=== PATIENT | female | born 1980 | race Caucasian/White ===

== ENCOUNTER 2022-05-25 08:40 | Outpatient (CLI) | payer OTHER, SELFPAY ==
--- NOTE | 2022-05-25 08:45 | CRLHL7_ITS ---
For Patients: As a result of the Cures Act, medical imaging exams and procedure reports are released immediately into your electronic medical record. You may view this report before your referring provider. If you have questions, please contact your health care provider. DIGITAL DIAGNOSTIC BILATERAL MAMMOGRAM USING TOMOSYNTHESIS AND COMPUTER-AIDED DETECTION LEFT BREAST ULTRASOUND CLINICAL HISTORY: LEFT breast discharge. COMPARISON: 04/02/2021, 03/17/2020. TECHNIQUE: Digital BILATERAL mammogram in four projections. Tomosynthesis and CAD utilized. Real-time ultrasound imaging of LEFT breast with imaging documentation. BREAST COMPOSITION: The breasts are heterogeneously dense, which may obscure small masses. FINDINGS: 3D CC/3D MLO mammograms submitted bilaterally. No suspicious masses or architectural distortion. No adenopathy or suspicious calcifications. Targeted LEFT breast ultrasound performed in the LEFT periareolar region. Normal fibroglandular tissue is present. No intraductal lesion or duct ectasia. No solid mass. No fluid collection. IMPRESSION: Normal BILATERAL mammograms and normal targeted LEFT periareolar breast ultrasound. No evidence of malignancy or papilloma. RECOMMENDATIONS: Annual BILATERAL screening mammography. Results and recommendations discussed with the patient. BI-RADS Category 2: Benign A lay language report of this examination will be provided to the patient. Dictated by Blake Brooke MD @ 05/25/2022 9:51:25 AM /Dictated by: Blake Brooke MD @ 05/25/2022 9:51:00 AM (Electronically Signed)
--- NOTE | 2022-05-25 09:15 | CRLHL7_ITS ---
For Patients: As a result of the Cures Act, medical imaging exams and procedure reports are released immediately into your electronic medical record. You may view this report before your referring provider. If you have questions, please contact your health care provider. PLEASE SEE DIGITAL DIAGNOSTIC BILATERAL MAMMOGRAM PERFORMED SAME DAY CRL:tio kinsey/Dictated by: Blake Brooke MD @ 05/25/2022 9:51:00 AM (Electronically Signed)
== END 2022-05-25 08:41 | disposition home or self-care (01) ==
LOC: MAMMO 08:46
PROVIDERS: Visit Provider Physician Assistant
DX: N64.52 Nipple discharge (principal)
CPT/HCPCS: 76642; 77066; G0279

== ENCOUNTER 2023-08-28 14:05 | Outpatient (CLI) | payer OTHER, SELFPAY ==
--- NOTE | 2023-08-28 14:40 | CRLHL7_ITS ---
For Patients: As a result of the Cures Act, medical imaging exams and procedure reports are released immediately into your electronic medical record. You may view this report before your referring provider. If you have questions, please contact your health care provider. BILATERAL SCREENING MAMMOGRAM WITH COMPUTER-AIDED DETECTION AND TOMOSYNTHESIS TECHNIQUE: CC and MLO views were obtained. These mammographic images have been obtained using full-field digital technique. These mammographic images were interpreted with the benefit of computer-aided detection. Breast Tomosynthesis was used in this interpretation. COMPARISON FILM: 05/25/22, 04/02/21, 03/17/20. FINDINGS: The breasts are heterogeneously dense, which may obscure small masses IMPRESSION: There is no radiographic evidence for malignancy. ASSESSMENT: BI-RADS Category 1: Negative RECOMMENDATION: Routine screening mammogram in 1 year. A lay language report of this examination will be provided to the patient. Blake Brooke M.D. Diagnostic Radiologist [email or web address] ROBBY/[email or web address] / be/Dictated by: Blake Brooke MD @ 08/29/2023 8:48:00 AM (Electronically Signed)
== END 2023-08-28 14:06 | disposition home or self-care (01) ==
LOC: MAMMO 14:08
PROVIDERS: Visit Provider Advanced Practice Midwife
DX: Z12.31 Encounter for screening mammogram for malignant neoplasm of breast (principal); R92.2 Inconclusive mammogram
CPT/HCPCS: 77063; 77067; T1013

== ENCOUNTER 2024-09-13 09:40 | Outpatient (CLI) | payer OTHER, SELFPAY ==
--- NOTE | 2024-09-13 10:15 | CRLHL7_ITS ---
For Patients: As a result of the Century Cures Act, medical imaging exams and procedure reports are released immediately into your electronic medical record. You may view this report before your referring provider. If you have questions, please contact your health care provider. BILATERAL DIGITAL SCREENING MAMMOGRAM WITH COMPUTER-AIDED DETECTION AND TOMOSYNTHESIS CLINICAL HISTORY: Routine screening exam. COMPARISON: 08/28/23, 05/25/22, 04/02/21. TECHNIQUE: Digital mammogram in CC and MLO projections including computer-aided detection (CAD). Tomosynthesis was used in this interpretation. BREAST COMPOSITION: The breasts are heterogeneously dense, which may obscure small masses. FINDINGS: RIGHT Breast: Focal asymmetric density within the upper-outer quadrant 6 cm from the nipple. LEFT Breast: No suspicious findings. IMPRESSION: RIGHT breast asymmetry/mass. RECOMMENDATIONS: Additional mammographic views of the RIGHT breast including 3D spot compression CC/MLO. RIGHT breast ultrasound may also be required. The [facility] will contact the patient. A lay language report of this examination will be provided to the patient. BI-RADS Category 0: Incomplete: Need Additional Imaging Evaluation Dictated by Blake Brooke MD @ 09/13/2024 11:31:19 AM RICARDO/pasha DW/Dictated by: Blkae Brooke MD @ 09/13/2024 11:31:00 AM (Electronically Signed)
== END 2024-09-13 09:41 | disposition home or self-care (01) ==
LOC: MAMMO 09:40
PROVIDERS: Visit Provider Registered Nurse
DX: Z12.31 Encounter for screening mammogram for malignant neoplasm of breast (principal); N63.10 Unspecified lump in the right breast, unspecified quadrant; R92.333 Mammographic heterogeneous density, bilateral breasts
CPT/HCPCS: 77063; 77067; T1013

== ENCOUNTER 2024-10-01 09:40 | Outpatient (CLI) | payer OTHER, SELFPAY | END 2024-10-01 09:41 | disposition home or self-care (01) | PROVIDERS: Visit Provider Registered Nurse | DX: N63.10 Unspecified lump in the right breast, unspecified quadrant (principal); R92.8 Other abnormal and inconclusive findings on diagnostic imaging of breast | CPT/HCPCS: 76642; 77065; T1013; G0279 ==

== ENCOUNTER 2024-10-07 08:08 | Outpatient (CLI) | payer OTHER, SELFPAY ==
--- NOTE | 2024-10-07 08:15 | CRLHL7_ITS ---
For Patients: As a result of the Century Cures Act, medical imaging exams and procedure reports are released immediately into your electronic medical record. You may view this report before your referring provider. If you have questions, please contact your health care provider. ULTRASOUND-GUIDED BREAST BIOPSY AND POST-BIOPSY DIGITAL MAMMOGRAM FOR BIOPSY MARKER PLACEMENT CLINICAL HISTORY: Indeterminate nodule. COMPARISON STUDIES: 10/01/2024, 09/13/2024. TECHNIQUE: Real-time ultrasound with image documentation was used for targeting the breast lesion. Core biopsy specimens were obtained using an automated gun with a 16-gauge biopsy needle. Post-biopsy CC and ML digital mammograms were obtained to document position of the biopsy marker. CONSENT and TIME OUT: The procedure, risks, and alternatives were explained to the patient and a consent was signed. [place] Protocol was followed including pre-procedure verification that relevant information/documentation was available, reviewed and properly matched to the patient; consent accurate and complete; and equipment and supplies available. Time Out was conducted just prior to starting procedure to verify the four required elements: patient identity, correct side/site marked (if applicable), procedure, relevant images/results properly labeled and displayed (if applicable). PROCEDURE: The patient was positioned supine on the ultrasound table. The breast was prepped with ChloraPrep. 7 cc of 1 percent lidocaine used for local anesthesia. Core samples were obtained. A sterile metal biopsy clip was placed percutaneously to rissa the lesion position within the breast. The specimens were placed in 10% formalin and sent to the pathology department. Pressure was held on the biopsy site until all bleeding subsided. The skin incision was closed with Steri-Strips. An ice pack was positioned over the biopsy site. Post-biopsy instructions were reviewed with the patient, and a written copy was given to her. LATERALITY: RIGHT breast. LESION: Hypoechoic solid nodule measuring 8 x 4 x 9 millimeters at 12 o`clock 4 cm from the nipple. SUSPICION FOR MALIGNANCY: Intermediate. NUMBER OF SAMPLES: 5. BIOPSY CLIP SHAPE: Oval. PROXIMITY OF CLIP TO TARGET: Within the lesion. IMPRESSION: Ultrasound-guided breast biopsy. When the pathology report is available, an addendum to this report will be made. ACR not applicable Dictated by Blake Brooke MD @ 10/07/2024 9:47:13 AM jj/Dictated by: Blake Brooke MD @ 10/07/2024 9:47:00 AM (Electronically Signed)
== END 2024-10-07 08:09 | disposition home or self-care (01) ==
LOC: US 08:09
PROVIDERS: Visit Provider Registered Nurse
DX: N63.10 Unspecified lump in the right breast, unspecified quadrant (principal); D24.1 Benign neoplasm of right breast; R92.8 Other abnormal and inconclusive findings on diagnostic imaging of breast
CPT/HCPCS: 19083; 77065; 88305; T1013; A4648; A4649